=== PATIENT | female | born 1980 | race Hispanic/Latino ===

== ENCOUNTER 2017-05-20 08:52 | Inpatient (IN) | payer MEDICAID ==
[~2017-05-20] VITALS: Ht 165.1 cm; Wt 146.5 kg
[2017-05-20 12:58] LABS: HEMATOCRIT 39.6 % (36-48); MEAN CORPUSCULAR HEMOGLOBIN 30.6 pg (27.0-33.0); MEAN CORPUSCULAR HGB CONC 34.3 g/dL (32.0-36.0); MEAN CORPUSCULAR VOLUME 89.4 fL (79-99); PLATELET COUNT (AUTO) 194 K/uL (130-400); RED BLOOD CELL COUNT(AUTO) 4.43 MIL/uL (4.00-5.50); RED CELL DISTRIBUTION WIDTH 14.3 % (11.0-15.5); WHITE BLOOD COUNT (AUTO) 9.3 K/uL (4.8-10.8)
[2017-05-21] MEDS ORDERED: CEFAZOLIN SODIUM 1 GM VIAL ONE (05:53)
[2017-05-21] MEDS ORDERED: LACTATED RINGERS 1000ML 1,000 ML IV SCH (06:00)
[2017-05-21] MEDS ORDERED: CEFAZOLIN SODIUM 1 GM VIAL IVP PRN (06:00)
[2017-05-21] MEDS ORDERED: CEFAZOLIN SODIUM 1 GM VIAL IVP ONE (07:40)
[2017-05-21] MEDS ORDERED: EPHEDRINE-NS PF 50MG/5ML SYRINGE IV ONE (07:45)
[2017-05-21] MEDS: INSULIN HUMULIN R 100 UNIT/ML 3ML SQ SCH ×2 (07:49→16:30)
[2017-05-21] MEDS ORDERED: ONDANSETRON HCL 4 MG/2 ML VIAL ONE (07:58)
[2017-05-21] MEDS ORDERED: OXYTOCIN 10 USP UNITS/ML ONE ×2 (07:58→08:42)
[2017-05-21] MEDS ORDERED: DEXAMETHASONE SOD PHOSPHATE 10MG/ML 1ML VIAL ONE (07:58)
[2017-05-21 08:25] LABS: HEPATITIS Bs ANTIGEN SCREEN P Negative (Negative)
[2017-05-21] MEDS ORDERED: OXYTOCIN-LR 20 UNITS/1000 ML 1,000 ML IV PRN (08:47)
[2017-05-21] MEDS ORDERED: SODIUM CHLORIDE 0.9% 10 ML VIAL IVP PRN (09:00)
[2017-05-21] MEDS ORDERED: METOCLOPRAMIDE 10 MG/2 ML VIAL IVP PRN (09:15)
[2017-05-21] MEDS ORDERED: PROMETHAZINE HCL 25 MG/ML 1ML AMPULE IM PRN (09:15)
[2017-05-21] MEDS ORDERED: MORPHINE SULFATE 2 MG/ML 1ML SYG IVP PRN (09:15)
[2017-05-21] MEDS ORDERED: DiphenhydrAMINE HCL 50 MG/ML VIAL IVP PRN (09:15)
[2017-05-21] MEDS ORDERED: ONDANSETRON HCL 4 MG/2 ML 8 MG in SODIUM CHLORIDE 0.9% 50 ML IVP NR (09:15)
[2017-05-21] MEDS ORDERED: ONDANSETRON HCL 4 MG/2 ML VIAL IVP PRN ×2 (09:15)
[2017-05-21] MEDS ORDERED: NALOXONE HCL 0.4 MG/1 ML ML IVP PRN (09:15)
[2017-05-21] MEDS ORDERED: HYDROCODONE/ACETAMINOPHEN 5/325 MG TAB PO PRN ×2 (09:15)
[2017-05-21] MEDS ORDERED: EPHEDRINE SULFATE 50 MG/ML AMPULE IVP PRN (09:15)
[2017-05-21 10:05] VITALS: BP 119/57
[2017-05-21] MEDS ORDERED: GLYB5TAB8 PO (10:28)
[2017-05-21] MEDS ORDERED: PREN-154 PO (10:28)
[2017-05-21] MEDS: PROMETHAZINE HCL 25 MG/ML 1ML AMPULE IM PRN ×2 (11:24→16:10)
[2017-05-21] MEDS: MEPERIDINE-PF 75 MG/ML SYG IM PRN ×2 (11:25→16:11)
[2017-05-21 11:40] VITALS: BP 127/56
[2017-05-21 15:32] VITALS: BP 142/70
[2017-05-21] MEDS: SODIUM CHLORIDE 0.9% 1000ML 1,000 ML IV SCH ×2 (16:03→23:36)
[2017-05-21 19:26] VITALS: BP 143/74
[2017-05-21 23:22] VITALS: BP 145/75
[2017-05-22 03:00] VITALS: BP 140/77
[2017-05-22] MEDS: MEPERIDINE-PF 75 MG/ML SYG IM PRN (04:01)
[2017-05-22] MEDS: PROMETHAZINE HCL 25 MG/ML 1ML AMPULE IM PRN (04:01)
[2017-05-22] MEDS ORDERED: ACETAMINOPHEN EXTRA STRENGTH 500 MG TABLET PO PRN (04:30)
[2017-05-22] MEDS ORDERED: LANOLIN 30GM OINTMENT TP PRN (04:30)
[2017-05-22] MEDS ORDERED: BISACODYL 10 MG SUPP.RECT RC PRN (04:30)
[2017-05-22] MEDS ORDERED: HYDROCODONE/ACETAMINOPHEN 5/325 MG TAB PO PRN (04:30)
[2017-05-22 05:22] LABS: HEMATOCRIT 31.7 % (36-48); MEAN CORPUSCULAR HEMOGLOBIN 30.8 pg (27.0-33.0); MEAN CORPUSCULAR VOLUME 90.6 fL (79-99); PLATELET COUNT (AUTO) 96 K/uL (130-400); RED CELL DISTRIBUTION WIDTH 14.6 % (11.0-15.5); WHITE BLOOD COUNT (AUTO) 11.3 K/uL (4.8-10.8)
[2017-05-22] MEDS: SODIUM CHLORIDE 0.9% 1000ML 1,000 ML IV SCH (06:00)
[2017-05-22] MEDS: INSULIN HUMULIN R 100 UNIT/ML 3ML SQ SCH ×4 (07:30→21:00)
[2017-05-22 07:41] VITALS: BP 149/76
[2017-05-22] MEDS: SIMETHICONE 80 MG TAB.CHEW PO PRN ×4 (09:05→21:32)
[2017-05-22] MEDS: DOCUSATE SODIUM 100 MG CAP PO SCH ×2 (09:05→21:32)
[2017-05-22 11:42] VITALS: BP 142/71
[2017-05-22] MEDS: IBUPROFEN 600 MG TABLET PO PRN ×2 (12:57→23:22)
[2017-05-22 15:49] VITALS: BP 133/89
[2017-05-22] MEDS: ACETAMINOPHEN-CODEINE 300/30MG TAB PO PRN (17:45)
[2017-05-22 19:46] VITALS: BP 136/75
[2017-05-22 23:23] VITALS: BP 141/93
[2017-05-23 03:02] VITALS: BP 133/63
[2017-05-23] MEDS: ACETAMINOPHEN-CODEINE 300/30MG TAB PO PRN (03:02)
[2017-05-23] MEDS: INSULIN HUMULIN R 100 UNIT/ML 3ML SQ SCH ×2 (07:14→11:30)
[2017-05-23 08:40] VITALS: BP 136/74
[2017-05-23] MEDS: SIMETHICONE 80 MG TAB.CHEW PO PRN (09:17)
[2017-05-23] MEDS: DOCUSATE SODIUM 100 MG CAP PO SCH (09:17)
[2017-05-23] MEDS: IBUPROFEN 600 MG TABLET PO PRN (09:18)
[2017-05-23 12:06] VITALS: BP 128/76
[2017-05-23 15:51] VITALS: BP 130/72
== END 2017-05-23 16:30 | disposition home or self-care (01) | DRG 540 ==
LOC: EDSTATUS 12:00 → LDH 05-21 05:44 → WSH 05-21 10:05
PROVIDERS: ADMIT Obstetrics & Gynecology; ATTEND Obstetrics & Gynecology
PROC: 0UB70ZZ Excision of Bilateral Fallopian Tubes, Open Approach (ICD-10-PCS; 2017-05-21)
PROC: 10D00Z1 Extraction of Products of Conception, Low, Open Approach (ICD-10-PCS; principal; 2017-05-21 07:30)
DX: O24.429 Gestational diabetes mellitus in childbirth, unspecified control (principal); Z68.43 Body mass index [BMI] 50.0-59.9, adult; Z30.2 Encounter for sterilization; O34.211 Maternal care for low transverse scar from previous cesarean delivery; Z37.0 Single live birth; O99.214 Obesity complicating childbirth; E66.9 Obesity, unspecified; Z28.21 Immunization not carried out because of patient refusal; Z3A.39 39 weeks gestation of pregnancy
CPT/HCPCS: 36415; 59510; 82948; 85027; 86592; 86850; 86900; 86901; 87340; 88302; A4344; A4450; A4606; J0690; J1100; J2175; J2405; J2550; J2590; J3490; J7030; J7120